=== PATIENT | male | born 1945 | race Caucasian/White ===

== ENCOUNTER → 2016-05-06 | Outpatient (CLI) | payer OTHER | LOC: MHCPAIN 11:02 | DX: G89.29 Other chronic pain (principal); M50.90 Cervical disc disorder, unspecified, unspecified cervical region; M54.81 Occipital neuralgia | CPT/HCPCS: G0463 ==

== ENCOUNTER → 2016-05-19 | Outpatient (CLI) | payer OTHER | LOC: MHCPAIN 09:15 | DX: M50.321 Other cervical disc degeneration at C4-C5 level (principal); M54.81 Occipital neuralgia ==

== ENCOUNTER → 2016-06-03 | Outpatient (CLI) | payer OTHER | LOC: MHCPAIN 09:29 | DX: G89.29 Other chronic pain (principal); M50.90 Cervical disc disorder, unspecified, unspecified cervical region; M54.81 Occipital neuralgia; R51 Headache | CPT/HCPCS: G0463 ==

== ENCOUNTER → 2016-06-30 | Outpatient (CLI) | payer OTHER | LOC: MHCPAIN 08:43 | DX: M50.31 Other cervical disc degeneration, high cervical region (principal) ==

== ENCOUNTER → 2016-07-06 | Outpatient (CLI) | payer OTHER | LOC: MHCPAIN 10:07 | DX: G89.29 Other chronic pain (principal); M50.90 Cervical disc disorder, unspecified, unspecified cervical region; M54.81 Occipital neuralgia | CPT/HCPCS: G0463 ==

== ENCOUNTER → 2016-07-21 | Outpatient (CLI) | payer OTHER | LOC: MHCPAIN 08:32 | DX: M50.90 Cervical disc disorder, unspecified, unspecified cervical region (principal); M54.81 Occipital neuralgia ==

== ENCOUNTER → 2016-07-27 | Outpatient (CLI) | payer OTHER | LOC: MHCPAIN 10:24 | DX: G89.29 Other chronic pain (principal); M50.90 Cervical disc disorder, unspecified, unspecified cervical region; M54.81 Occipital neuralgia; R51 Headache | CPT/HCPCS: G0463 ==

== ENCOUNTER → 2016-08-05 | Outpatient (CLI) | payer OTHER | LOC: MHCPAIN 08:49 | DX: G89.29 Other chronic pain (principal); M50.90 Cervical disc disorder, unspecified, unspecified cervical region; M54.81 Occipital neuralgia; R51 Headache | CPT/HCPCS: G0463 ==